=== PATIENT | female | born 1965 | race Caucasian/White ===

== ENCOUNTER 2024-09-06 10:24 | Observation (INO) | payer OTHER ==
[2024-09-03 12:48] VITALS: BMI 29.5
[2024-09-06] MEDS ORDERED: Bupivacaine/Epinephrine 0.25% 30 ML VIAL ONE (10:56)
[2024-09-06] MEDS ORDERED: Ketorolac Tromethamine 30 MG (1 mL) VIAL ONE (11:12)
[2024-09-06] MEDS ORDERED: Acetaminophen 500 MG TAB ONE (11:12)
[2024-09-06] MEDS ORDERED: CEFAZOLIN 2 GM VIAL ONE (12:46)
[2024-09-06] MEDS ORDERED: KETAMINE 100 MG/ML (5ML VIAL) ONE (12:50)
[2024-09-06] MEDS ORDERED: SUGAMMADEX SODIUM 200 MG/2 ML VIAL ONE (12:50)
[2024-09-06] MEDS ORDERED: Albumin 5% 0 ML ONE (12:51)
[2024-09-06] MEDS ORDERED: Phenylephrine 40 MG/NS 250 ML 250 ML ONE (12:51)
[2024-09-06] MEDS ORDERED: Lidocaine 1% PF 5 ML VIAL ONE (12:53)
[2024-09-06] MEDS ORDERED: fentaNYL 50 mcg/mL 1 mL Vial ONE ×3 (12:53→15:36)
[2024-09-06] MEDS ORDERED: SUCCINYLCHOLINE/SOD CL,ISO/PF 200 MG/10 ML SYRINGE FS ONE ×2 (12:53→13:00)
[2024-09-06] MEDS ORDERED: Rocuronium Bromide 10 MG/ML (10ML VIAL) ONE (12:53)
[2024-09-06] MEDS ORDERED: PROPOFOL 20 ML ONE (12:53)
[2024-09-06] MEDS ORDERED: PHENYLEPHRINE-NS 100 MCG/ML 10 ML SYRINGE ONE (12:58)
[2024-09-06] MEDS ORDERED: Midazolam HCl 2 mg/2 ml Vial ONE (12:59)
[2024-09-06] MEDS ORDERED: Sevoflurane 250 ML INH ANEST BOTTLE ONE (13:25)
[2024-09-06] MEDS ORDERED: ePHEDrine Sulfate 50 MG/10 ML VIAL ONE (13:55)
[2024-09-06] MEDS ORDERED: Dexamethasone 4 mg/ml Vial ONE (14:53)
[2024-09-06] MEDS ORDERED: Ondansetron PF 4 MG/2 ML Vial ONE (14:53)
[2024-09-06] MEDS ORDERED: HYDROmorphone 0.5 MG/0.5 ML SYRINGE ONE ×2 (16:00→16:25)
[2024-09-06] MEDS ORDERED: Ondansetron PF 4 MG/2 ML Vial IVP PRN (16:56)
[2024-09-06] MEDS ORDERED: Ipratropium/Albuterol 3 ML NEB NEB PRN (16:56)
[2024-09-06] MEDS ORDERED: traMADol HCl 50 MG TAB PO PRN (16:56)
[2024-09-06] MEDS ORDERED: hydrALAZINE 20 MG/ML VIAL SLOW IVP PRN (16:56)
[2024-09-06] MEDS ORDERED: Morphine 2 MG/ML VIAL SLOW IVP PRN (16:56)
[2024-09-06] MEDS ORDERED: Promethazine HCl 25 MG/ML VIAL IM PRN (16:56)
[2024-09-06] MEDS ORDERED: tiZANidine HCl 4 MG TAB PO PRN (17:17)
[2024-09-06] MEDS ORDERED: Albuterol 2.5 MG (3 mL) NEB NEB PRN (17:21)
[2024-09-06] MEDS: D5 1/2 NS w/20 mEq KCL 1,000 ML IV SCH (17:36)
[2024-09-06] MEDS: Ketorolac Tromethamine 30 MG (1 mL) VIAL IVP SCH (17:38)
[2024-09-06] MEDS: Famotidine/PF 20 mg/2ml Vial SLOW IVP SCH (21:22)
[2024-09-06] MEDS: Mometasone 200 MCG/Formoterol 5 MCG 60 PUFF INHALER INH SCH (21:25)
[2024-09-06] MEDS: Ipratropium Bromide 2.5 ml Neb NEB SCH (21:46)
[2024-09-06] MEDS: Famotidine 20 MG TAB PO SCH (22:07)
[2024-09-07] MEDS: Morphine 4 MG/ML VIAL SLOW IVP PRN (01:10)
[2024-09-07 04:02] LABS: #Basophils 0.01 10x3/uL (0.0-0.2); #Neutrophils 9.48 10x3/uL (1.5-8.4); %Basophils 0.1 % (0.0-2.0); %Lymphocytes 6.5 % (18.0-47.0); %Monocytes 5.5 % (0.0-10.0); %Neutrophils 87.3 % (40.0-75.0); Hematocrit 38.8 % (34.9-44.5); Hemoglobin 13.3 g/dL (12.0-15.5); Mean Corpuscular HGB CONC 34.3 g/dL (32.0-36.0); Mean Corpuscular Hemoglobin 35.7 pg (27.0-33.0); Mean Platelet Volume 8.8 fL (7.4-10.4); Platelet Count 262 10x3/uL (150-450); RBC Distribution Width 13.6 % (11.5-14.5); Red Blood Cell (RBC) Count 3.73 10x6/uL (3.90-5.03); White Blood Cell (WBC) Count 10.9 10x3/uL (3.5-10.5)
[2024-09-07 04:08] LABS: Anion Gap 14 mmol/L (10-20); BUN (Urea Nitrogen) 26 mg/dL (9.8-20.1); Calc. Creatinine Clearance 52 mL/min (70-130); Calcium 8.8 mg/dL (7.8-10.44); Carbon Dioxide 21 mmol/L (23-31); Chloride 102 mmol/L (98-107); Estimated GFR 50; Glucose 133 mg/dL (80-115); Sodium 133 mmol/L (136-145)
[2024-09-07 08:02] VITALS: BP 107/67; TEMP 98.6
[2024-09-07] MEDS: dilTIAZem CD 180 MG CAP PO SCH (08:14)
[2024-09-07] MEDS: Lisinopril 20 MG TAB PO SCH (08:15)
[2024-09-07] MEDS: Hydrochlorothiazide 25 MG TAB PO SCH (08:15)
[2024-09-07] MEDS: Furosemide 20 MG TAB PO SCH (08:18)
[2024-09-07] MEDS ORDERED: HYDROcodone/Acetaminophen 7.5/325 mg Tablet PO PRN (15:06)
[2024-09-07] MEDS ORDERED: Acetaminophen 325 MG TAB PO PRN (15:06)
== END 2024-09-07 10:28 | disposition home or self-care (01) ==
LOC: CSHSDC 10:24 → CSHTELE 16:46
PROVIDERS: ADMIT Specialist; ATTEND Specialist
PROC: 0BQT4ZZ Repair Diaphragm, Percutaneous Endoscopic Approach (ICD-10-PCS; principal; 2024-09-06)
DX: K44.9 Diaphragmatic hernia without obstruction or gangrene (principal); I10 Essential (primary) hypertension; D64.9 Anemia, unspecified; F41.9 Anxiety disorder, unspecified; G43.909 Migraine, unspecified, not intractable, without status migrainosus; J44.9 Chronic obstructive pulmonary disease, unspecified; Z90.49 Acquired absence of other specified parts of digestive tract; Z90.710 Acquired absence of both cervix and uterus; Z90.13 Acquired absence of bilateral breasts and nipples; Z98.890 Other specified postprocedural states; F17.200 Nicotine dependence, unspecified, uncomplicated; Z91.030 Bee allergy status; Z91.040 Latex allergy status; Z91.048 Other nonmedicinal substance allergy status
CPT/HCPCS: 36415; 80048; 85025; 94640; 94664; 94760; 96374; 96375; 96376; C1776; G0378; J1100; J1170; J1885; J2250; J2272; J2405; J2704; J3010; J3480; J3490; P9045